=== PATIENT | male | born 1960 | race Caucasian/White ===

== ENCOUNTER 2019-03-28 08:47 | Day surgery (SDC) | payer OTHER ==
[~2019-03-28 08:47] MED LIST: PROPOFOL INJ 200 MG/20 ML VIAL IV ONE
[2019-03-28] MEDS ORDERED: RINGERS SOLUTION,LACTATED 1,000 ML IV PRN (09:55)
[2019-03-28] MEDS ORDERED: ALBUTEROL SULFATE 0.083% NEB 2.5 MG/3 ML AMPUL NEB PRN (09:56)
[2019-03-28] MEDS ORDERED: ALBUTEROL SULFATE 0.083% NEB 2.5 MG/3 ML AMPUL NEB ONE (10:02)
[2019-03-28] MEDS ORDERED: PROPOFOL INJ 200 MG/20 ML VIAL IV ONE (10:55)
[2019-03-28 11:53] VITALS: BP 105/65
--- NOTE | 2019-03-28 12:10 | Operative Report ---
Operative Report DATE OF SURGERY: 03/28/19 Operative Report: The risks, benefits and alternatives of the procedure including the risk of bleeding, perforation requiring surgery have been explained to the patient in detail and informed consent was obtained. Patient is placed in a left, lateral decubital position. Timeout was called. Propofol medication is administered. Rectal examination is done which did not reveal any masses, tears or fissures. An Olympus videoscope was introduced into the patient's rectum. Scope was then carefully advanced all the way to the cecum. Cecum was identified by the usual anatomical landmarks including the ileocecal valve as well as the appendiceal office. Photodocumentation is obtained. Scope was then sequentially pulled back via the various segments of the colon including the ascending colon, hepatic flexure, transverse colon, splenic flexure, descending colon and finally into the rectosigmoid portions of the colon. Retroflexion maneuver is performed. PREOPERATIVE DIAGNOSIS: Colorectal cancer screening POSTOPERATIVE DIAGNOSIS: Rectal polyps x2 removed via snare polypectomy and retrieved. Sigmoid polyps x2 removed via snare polypectomy and retrieved. Hepatic flexure polyp removed via snare polypectomy and retrieved. Sessile ascending colon polyp, it was only able to be partially removed; the site is injected with Jessy ink for future location. Diverticulosis without any evidence of diverticulitis. Internal hemorrhoids OPERATION: Colonoscopy with snare polypectomy. Colonoscopy with submucosal Jessy ink injection. Prolonged procedure time greater than 1 hour SURGEON: UMBERTO MEDINA ANESTHESIA: LMAC TISSUE REMOVED OR ALTERED: As noted above. COMPLICATIONS: None. ESTIMATED BLOOD LOSS: None. INTRAOPERATIVE FINDINGS: As noted above. PROCEDURE: Patient tolerated the procedure well. No immediate postprocedure complications are noted. Patient is discharged in good condition. Discharge date 03/28/2019. Discharge diet: Regular. Discharge activity: Regular. 2 to 3-week follow-up to discuss findings. Patient is instructed to call the office or proceed to the emergency room should there be any further problems or questions. We will discuss with the patient to see if he wants to proceed for possible resection versus reattempt at colonoscopy with specific removal of the polyp at the ascending colon which had been tattooed with Jessy ink for location. Surveillance colonoscopy 6 months
== END 2019-03-28 11:40 | disposition home or self-care (01) ==
LOC: END 08:47
PROVIDERS: ATTEND Internal Medicine Gastroenterology
DX: Z12.11 Encounter for screening for malignant neoplasm of colon (principal); D12.6 Benign neoplasm of colon, unspecified; D12.2 Benign neoplasm of ascending colon; K64.8 Other hemorrhoids; K57.30 Diverticulosis of large intestine without perforation or abscess without bleeding; J44.9 Chronic obstructive pulmonary disease, unspecified; F17.210 Nicotine dependence, cigarettes, uncomplicated; E11.9 Type 2 diabetes mellitus without complications; I10 Essential (primary) hypertension
CPT/HCPCS: 45380; 45385; 45381; 82962; 88305 ×2; 94640; J2704; 811